=== PATIENT | female | born 1990 | race African-American/Black ===

== ENCOUNTER 2018-11-24 16:37 | Emergency (ER) | payer SELFPAY ==
[2018-11-24 16:44] VITALS: BP 125/82; PULSE 97; TEMP 97.8; BMI 27.9
[2018-11-24] MEDS ORDERED: MAG HYDROX/AL HYDROX/SIMETH 30 ML UNIT-DOSE CUP PO ONE (16:48)
[2018-11-24] MEDS ORDERED: ONDANSETRON 4 MG/2 ML VIAL IVPB ONE (16:48)
[2018-11-24] MEDS ORDERED: FAMOTIDINE 20 MG/50 ML IVPB 20 MG/50 ML MG IVPB ONE ×2 (16:48→17:48)
[2018-11-24] MEDS ORDERED: SODIUM CHLORIDE 1,000 ML IV STA (16:48)
[2018-11-24] MEDS ORDERED: ACETAMINOPHEN 1000 MG/100 ML VIAL (NON FORMULARY) IVPB ONE (17:10)
--- NOTE | 2018-11-24 17:11 | PDOC ---
History of Present Illness - General Chief Complaint: Nausea/Vomiting Stated Complaint: CHEST PAIN/ABD PAIN/VOMITING Time Seen by Provider: 11/24/18 16:50 History Source: Patient Exam Limitations: No Limitations - History of Present Illness Travel History: No Initial Comments: 11/24/18 17:10 28y F with PMH of Asthma presenting to ED with complaints of upper abdominal pain with nausea and vomiting that started last night but is persisting this AM. Pt states she was drinking last night and soon after started to feel nauseous. She tried eating fries but threw that up. This AM she woke up and vomited x6 which was yellow and had an episode of loose stool (not bloody, not melena). She has not had symptoms like this before. She has not tried to eat anything because she thinks she won't be able to keep it down. Abdominal pain is epigastric, sharp, radiates to the chest and throat, constant. She has not tried anything for the pain. She states that she has burps and feels she might throw up. Denies fever, chills, back pain, travel, sick contacts. She states no one else she was hanging out with has similar symptoms. She sought out a GI doctor in August regarding constipation and was treated with antibiotics which she stopped taking after a few days due to GI upset but states the constipation resolved. Currently menstruating. PMD: Lyo PMH: see hpi PSH: none Meds: albuterol Social: daily marijuana use, occasional alcohol use Allergies: nkda Past History - Past Medical History Allergies/Adverse Reactions: Allergies Allergy/AdvReac Type Severity Reaction Status Date / Time No Known Allergies Allergy Verified 11/24/18 16:43 Home Medications: Ambulatory Orders Famotidine [Pepcid -] 20 mg PO BID #14 tablet 11/24/18 Ondansetron [Zofran *Odt*] 4 mg SL BID #14 od.tablet 11/24/18 Asthma: Yes COPD: No - Psycho Social/Smoking Cessation Hx Smoking History: Current every day smoker Information on smoking cessation initiated: No Review of Systems - Review of Systems Constitutional: No: Symptoms Reported HEENTM: No: Symptoms Reported Respiratory: No: Symptoms reported Cardiac (ROS): No: Symptoms Reported ABD/GI: Yes: See HPI : No: Symptoms Reported Musculoskeletal: No: Symptoms Reported Integumentary: No: Symptoms Reported Neurological: No: Symptoms reported *Physical Exam - Vital Signs Last Vital Signs Temp Pulse Resp BP Pulse Ox 97.8 F 97 H 18 125/82 99 11/24/18 16:41 11/24/18 16:41 11/24/18 16:41 11/24/18 16:41 11/24/18 16:41 - Physical Exam General Appearance: Yes: Nourished, Appropriately Dressed. No: Apparent Distress HEENT: positive: EOMI, [place], Normal ENT Inspection. negative: Scleral Icterus ( R), Scleral Icterus (L) Neck: positive: Trachea midline, Supple Respiratory/Chest: positive: Lungs Clear, Normal Breath Sounds. negative: Crackles, Rales, Rhonchi, Stridor, Wheezing Cardiovascular: positive: Regular Rhythm, Regular Rate, S1, S2. negative: Edema , JVD, Murmur Gastrointestinal/Abdominal: positive: Normal Bowel Sounds, Soft, Tenderness ( epigastric). negative: Distended, Guarding, Rebound Musculoskeletal: negative: CVA Tenderness Extremity: positive: Normal Capillary Refill. negative: Swelling, Calf Tenderness Integumentary: positive: Normal Color, Dry, Warm. negative: Jaundice Neurologic: positive: electro optical engineer II-XII NML intact, Fully Oriented, Alert, Normal Mood/ Affect, Normal Response, Motor Strength / ED Treatment Course - LABORATORY CBC & Chemistry Diagram: 11/24/18 17:08 11/24/18 17:08 Medical Decision Making - Medical Decision Making 11/24/18 19:17 28y F with PMH of asthma presenting with abdominal pain n/v. vitals: slight tachyycardia ddx includes but not limited to gastritis, pud, cholecystitis, gallstone, pancreatitis. labs including lipase maalox, pepcid, ofirmev, iv fluids. labs wnl ua negative for infection. not pt feeling better. likely gastritis. will dc home. give return precautions and rx for zofran and pepcid. dispo home Discharge - Discharge Information Problems reviewed: Yes Clinical Impression/Diagnosis: Nausea & vomiting Qualifiers: Vomiting type: unspecified Vomiting Intractability: non-intractable Qualified Code(s): R11.2 - Nausea with vomiting, unspecified Abdominal pain Qualifiers: Abdominal location: epigastric Qualified Code(s): R10.13 - Epigastric pain Gastritis Qualifiers: Gastritis type: unspecified gastritis Chronicity: acute Gastritis bleeding: without bleeding Qualified Code(s): K29.00 - Acute gastritis without bleeding Condition: Improved Disposition: HOME - Admission No - Additional Discharge Information Prescriptions: Famotidine [Pepcid -] 20 mg PO BID #14 tablet Ondansetron [Zofran *Odt*] 4 mg SL BID #14 od.tablet - Follow up/Referral Referrals: Luiz Fong MD, [Primary Care Provider] - - Patient Discharge Instructions Patient Printed Discharge Instructions: DI for Gastritis, DI for Nausea -- Adult, DI for Vomiting -- Adult Additional Instructions: You were seen in the emergency room today for abdominal pain, nausea and vomiting. Your blood work is normal. I think you have gastritis (irritation of the stomach ). Medications have been prescribed to your pharmacy, take as directed. Remember to follow up with your GI doctor sometime next week if you can. Start of with a liquid diet (water, Gatorade, clear broth). If you can tolerate that, then you can eat soft solids. You can move on to a normal diet after that. I recommend staying away from fried, fatty foods, alcohol and coffee for the next week. Come back to the emergency room if pain gets worse, you continue vomiting, have blood in the stool or if any new concerning symptom develops. Thank you - Post Discharge Activity
[2018-11-24 17:15] LABS: BASO % 0.5 % (0-2.0); HEMATOCRIT 42.2 % (32.4-45.2); HEMOGLOBIN 13.4 GM/dL (10.7-15.3); LYMPH % 19.3 % (8-40); MCHC 31.9 g/dl (32.0-36.0); MEAN CELL VOLUME 84.7 fl (80-96); MONO % 2.9 % (3.8-10.2); NEUT % 75.3 % (42.8-82.8); RBC 4.98 M/mm3 (3.60-5.2); RDW 13.5 % (11.6-15.6)
--- NOTE | 2018-11-24 17:35 | PDOC ---
Attending Attestation - Resident Resident Name: Alice oBlanos - ED Attending Attestation I have performed the following: I have examined & evaluated the patient, The case was reviewed & discussed with the resident, I agree w/resident's findings & plan, Exceptions are as noted - HPI HPI: 11/24/18 17:34 This 28 yo female has been drinking alcohol last night and has been having epigastric pain and vomiting - Physicial Exam PE: 11/24/18 17:35 wnwd 28 yo female p/w epigastric pain and nausea and vomiting head ncat neck supple lungs cta b/l cvs [id number] abd no rebound,no guarding,mils epigastric pain with palpation no cva tenderness skin warm and dry neuro axox3,ambulatory psych appropriate - Medical Decision Making 11/24/18 17:40 Benign abd exam pt receiving IV fluids and zofran,cbc,comp,preg test 11/24/18 17:41 11/24/18 18:01 Reviewed labd ans they are unremarkable negative test ua :does show positive for ketones and she is receiving IVfluids 11/24/18 18:02 imp gastritis plan PPI,d/c home
[2018-11-24 17:39] LABS: BILIRUBIN,TOTAL 0.9 mg/dL (0.2-1); BLOOD UREA NITROGEN 12.9 mg/dL (7-18); CALCIUM 8.9 mg/dL (8.5-10.1); CREATININE 0.9 mg/dL (0.55-1.3); TOT PROT 7.7 g/dl (6.4-8.2)
[2018-11-24] MEDS ORDERED: MAG HYDROX/AL HYDROX/SIMETH 30 ML UNIT-DOSE CUP ONE (17:48)
[2018-11-24] MEDS ORDERED: ACETAMINOPHEN INJECTION 100 ML IVPB ONE (17:48)
[2018-11-24] MEDS ORDERED: ONDANSETRON 4 MG/2 ML VIAL ONE (17:48)
[2018-11-24 17:50] LABS: PH,URINE >= 9.0 (5.0-8.0); URINE APPEARANCE CLEAR; URINE BILIRUBIN NEGATIVE (NEGATIVE); URINE COLOR YELLOW; URINE GLUCOSE (UA) NEGATIVE (NEGATIVE); URINE KETONE TRACE (NEGATIVE); URINE LEUK ESTERASE TRACE (NEGATIVE); URINE NITRITE NEGATIVE (NEGATIVE); URINE PROTEIN 1+ (NEGATIVE)
[2018-11-24 17:51] LABS: MEAN PLT VOLUME 9.3 fl (7.5-11.1); PLATELET COUNT 214 K/MM3 (134-434)
== END 2018-11-24 20:06 | disposition home or self-care (01) ==
LOC: JER 16:37
PROC: 3E033GC Introduction of Other Therapeutic Substance into Peripheral Vein, Percutaneous Approach (ICD-10-PCS; principal; 2018-11-24)
PROC: 3E033GC Introduction of Other Therapeutic Substance into Peripheral Vein, Percutaneous Approach (ICD-10-PCS; 2018-11-24)
PROC: 3E033NZ Introduction of Analgesics, Hypnotics, Sedatives into Peripheral Vein, Percutaneous Approach (ICD-10-PCS; 2018-11-24)
DX: K29.00 Acute gastritis without bleeding (principal); J45.909 Unspecified asthma, uncomplicated; F17.210 Nicotine dependence, cigarettes, uncomplicated
CPT/HCPCS: 36415; 80053; 81003; 83690; 84703; 85025; 87077; 87086; 99282-25; J0131; J7030